=== PATIENT | female | born 1985 | race Caucasian/White ===

== ENCOUNTER 2025-05-15 15:33 | Emergency (ER) | payer SELFPAY ==
[~2025-05-15] VITALS: Ht 157.5 cm; Wt 68.0 kg
[2025-05-15 15:37] VITALS: O2SAT 98
[2025-05-15] MEDS: LIDOCAINE HCL/EPINEPHRINE 1%-EPI 1:100,000 20ML VIAL INFIL ONE (16:45)
[2025-05-15] MEDS: ACETAMINOPHEN 325MG TABLET PO ONE (18:03)
[2025-05-15] MEDS: TETANUS, DIPHTHERIA, PERTUSSIS VAC/PF 0.5ML (>10YR OLD) IM ONE (18:04)
[2025-05-15] MEDS: KETOROLAC 15MG/ML VIAL IV ONE (18:59)
[2025-05-15] MEDS ORDERED: NAPR-679 MT (19:31)
[2025-05-15] MEDS ORDERED: ACET-2708 MT (19:31)
[2025-05-15 19:55] VITALS: BP 114/70; PULSE 69; RESP 17; TEMP 36.9; O2SAT 98
== END 2025-05-15 21:58 | disposition home or self-care (01) ==
LOC: ER 15:33
DX: S01.21XA Laceration without foreign body of nose, initial encounter (principal); S83.422A Sprain of lateral collateral ligament of left knee, initial encounter; S80.11XA Contusion of right lower leg, initial encounter; Z79.1 Long term (current) use of non-steroidal anti-inflammatories (NSAID); V89.2XXA Person injured in unspecified motor-vehicle accident, traffic, initial encounter; Y93.89 Activity, other specified; Y92.89 Other specified places as the place of occurrence of the external cause; Y99.8 Other external cause status
CPT/HCPCS: 73502; 73552; 73562; 70450; 70486; 72125; 90715; 12011; 29505; 90471; 96374; 99285; J1885; J2004; Z7610 ×3